=== PATIENT | male | born 1995 | race Caucasian/White ===

== ENCOUNTER 2025-04-17 05:34 | Emergency (ER) | payer OTHER, MEDICAID ==
[~2025-04-17] VITALS: Ht 177.8 cm; Wt 80.0 kg
[2025-04-17 05:38] VITALS: O2SAT 98
[2025-04-17] MEDS: ONDANSETRON 4MG ODT PO ONE (06:41)
[2025-04-17] MEDS: ACETAMINOPHEN 325MG TABLET PO ONE (06:42)
[2025-04-17] MEDS: IBUPROFEN 600MG TABLET PO ONE (06:42)
[2025-04-17 07:15] VITALS: BP 116/72; PULSE 75; RESP 12; TEMP 37; O2SAT 98
== END 2025-04-17 07:15 | disposition home or self-care (01) ==
LOC: ER 05:34
DX: S40.011A Contusion of right shoulder, initial encounter (principal); S90.31XA Contusion of right foot, initial encounter; R14.0 Abdominal distension (gaseous); R51.9 Headache, unspecified; R11.0 Nausea; Z88.0 Allergy status to penicillin; V43.62XA Car passenger injured in collision with other type car in traffic accident, initial encounter; Y93.89 Activity, other specified; Y92.410 Unspecified street and highway as the place of occurrence of the external cause; Y99.8 Other external cause status
CPT/HCPCS: 99284; 70450; 73060; 73620; 74176; Q0162